=== PATIENT | female | born 1980 | race African-American/Black ===

== ENCOUNTER 2016-07-22 19:40 | Emergency (ER) | payer OTHER ==
[~2016-07-22] VITALS: Ht 182.9 cm; Wt 77.1 kg
[2016-07-22] MEDS ORDERED: NORCO 5-325 TA1 EACH PO (21:36)
[2016-07-22] MEDS ORDERED: PREDNISONE 20 M20 MG PO (21:38)
[2016-07-22] MEDS ORDERED: FLEXERIL PO (21:38)
[2016-07-22 21:44] VITALS: BP 111/77
== END 2016-07-22 21:48 | disposition home or self-care (01) ==
LOC: ER 19:40
DX: M54.12 Radiculopathy, cervical region (principal); M62.838 Other muscle spasm